=== PATIENT | male | born 1995 | race Caucasian/White ===

== ENCOUNTER 2019-08-31 10:01 | Emergency (ER) | payer OTHER ==
[2019-08-31 11:28] VITALS: BP 115/61
[2019-08-31] MEDS ORDERED: Ibuprofen TAB* 400 MG PO ONE (11:52)
--- NOTE | 2019-08-31 12:35 | UC ---
Elbow Pain - HPI Summary HPI Summary: Pt presents with c/o right elbow pain. Pt was moving a piece of wood at work and pulled very hard and felt a "rip" and had sudden onset pain right lateral side of elbow. - History of Current Complaint Chief Complaint: UCUpperExtremity Stated Complaint: R ELBOW INJ (WC) Time Seen by Provider: 08/31/19 11:32 Hx Obtained From: Patient Onset/Duration: Still Present Severity Initially: Moderate Severity Currently: Moderate Pain Intensity: 8 Location Of Pain: Is Discrete @ - right elbow Character: Dull, Aching, Stiffness Aggravating Factor(s): Pulling, Twisting Alleviating Factor(s): Rest Associated Signs And Symptoms: Positive: Weakness - Allergies/Home Medications Allergies/Adverse Reactions: Allergies Allergy/AdvReac Type Severity Reaction Status Date / Time clindamycin Allergy Unknown Rash Verified 08/31/19 11:18 Sulfa (Sulfonamide Allergy Unknown Rash Verified 08/31/19 11:18 Antibiotics) sulfamethoxazole Allergy Unknown Rash Verified 08/31/19 11:18 [From Bactrim] trimethoprim [From Bactrim] Allergy Unknown Rash Verified 08/31/19 11:18 PMH/Surg Hx/FS Hx/Imm Hx Previously Healthy: Yes - Surgical History Surgical History: None - Family History Known Family History: Positive: Cardiac Disease - Social History Occupation: Employed Full-time Lives: With Family Alcohol Use: Rare Substance Use Type: None Smoking Status (MU): Light Every Day Tobacco Smoker Type: Cigarettes, Smokeless Tobacco Amount Used/How Often: 1.5 ppd Have You Smoked in the Last Year: Yes Review of Systems All Other Systems Reviewed And Are Negative: Yes Constitutional: Positive: Negative Skin: Positive: Negative Eyes: Positive: Negative ENT: Positive: Negative Respiratory: Positive: Negative Cardiovascular: Positive: Negative Gastrointestinal: Positive: Negative Genitourinary: Positive: Negative Motor: Positive: Decreased ROM - pain with supination and pronation Neurovascular: Positive: Negative Musculoskeletal: Positive: Arthralgia, Decreased ROM - right elbow, Myalgia Neurological: Positive: Negative Psychological: Positive: Negative Is Patient Immunocompromised?: No Physical Exam Triage Information Reviewed: Yes Appearance: Well-Appearing Vital Signs: Initial Vital Signs Temp 98.5 F 08/31/19 11:20 Pulse 85 08/31/19 11:20 Resp 16 08/31/19 11:20 BP 115/61 08/31/19 11:20 Pulse Ox 100 08/31/19 11:20 Vital Signs Reviewed: Yes Eye Exam: Normal ENT Exam: Normal Dental Exam: Normal Neck exam: Normal Respiratory Exam: Normal Respiratory: Positive: No respiratory distress Musculoskeletal: Positive: ROM Limited @ - right elbow Neurological Exam: Normal Psychological Exam: Normal Skin Exam: Normal Diagnostics - Radiology No standard instances Radiology Interpretation Completed By: Radiologist - negative for fracture and dislocation Elbow Pain Course/Dx - Differential Dx/Diagnosis Differential Diagnosis/HQI/PQRI: Dislocation, Fracture (Closed), Sprain, Strain Provider Diagnosis: Right elbow pain, Strain of right elbow Discharge ED - Sign-Out/Discharge Documenting (check all that apply): Patient Departure All imaging exams completed and their final reports reviewed: Yes - Discharge Plan Condition: Stable Disposition: HOME Patient Education Materials: Elbow Sprain (ED), Ice Pack Application (ED), Safe Use of NSAIDs (ED) Forms: *Work Release Referrals: [facility] [Outside] - If Needed Ga Botello MD [Medical Doctor] - If Needed No Primary Care Phys,NOPCP [Primary Care Provider] - - Billing Disposition and Condition Condition: STABLE Disposition: Home - Attestation Statements Provider Attestation: Per institutional requirements, I have reviewed the chart, however, I was not consulted specifically or made aware of this patient by the midlevel provider. I did not personally evaluate, interact with , or disposition this patient.
== END 2019-08-31 12:53 | disposition home or self-care (01) ==
LOC: UCCORT 10:01
DX: M25.521 Pain in right elbow (principal); S46.911A Strain of unspecified muscle, fascia and tendon at shoulder and upper arm level, right arm, initial encounter; F17.210 Nicotine dependence, cigarettes, uncomplicated; F17.290 Nicotine dependence, other tobacco product, uncomplicated; Z88.1 Allergy status to other antibiotic agents; Z88.2 Allergy status to sulfonamides; X50.0XXA Overexertion from strenuous movement or load, initial encounter; Y92.9 Unspecified place or not applicable; Y99.0 Civilian activity done for income or pay
CPT/HCPCS: 99202; A9270-GY; G0463